=== PATIENT | male | born 1965 | race Caucasian/White ===

== ENCOUNTER 2017-05-21 10:29 | Emergency (ER) | payer MEDICAID, OTHER ==
[~2017-05-21] VITALS: Ht 172.7 cm; Wt 54.4 kg
[2017-05-21 10:41] VITALS: BP 123/78
[2017-05-21 11:16] LABS: HEMOGLOBIN 10.4 g/dL (12.0-18.0); MEAN CORPUSCULAR HEMOGLOBIN 29 pg (27-31); MEAN CORPUSCULAR HGB CONC 34 g/dL (33-37); MEAN CORPUSCULAR VOLUME 86 fL (80-94); PLATELET COUNT (AUTO) 78 K/uL (140-450); RED CELL DISTRIBUTION WIDTH 15.1 % (11.6-13.7); WHITE BLOOD COUNT (AUTO) 3.1 K/uL (4.8-10.8)
[2017-05-21 11:32] LABS: ANION GAP 12.2 (8-16); CARBON DIOXIDE 27.5 mmol/L (21-32); CHLORIDE 103 mmol/L (98-107); CREATININE 0.8 mg/dL (0.7-1.3); GFR ARICAN-AMERICAN 131 mL/min (>90); GLUCOSE 106 mg/dL (74-106); POTASSIUM 3.7 mmol/L (3.5-5.1); SODIUM SERUM 139 mmol/L (136-145); UREA NITROGEN, BLOOD 9 mg/dL (7-18)
[2017-05-21 11:34] LABS: ALBUMIN 2.5 g/dL (3.4-5.0); ASPARTATE AMINOTRANSFERASE 43 U/L (15-37)
[2017-05-21 11:52] LABS: EOSINOPHILS % (MANUAL) 2 % (0-4); LYMPHOCYTES % (MANUAL) 38 % (20-46); MONOCYTES % (MANUAL) 2 % (5-12)
== END 2017-05-21 11:03 | disposition left against medical advice (07) ==
LOC: MED 10:29
DX: G92 Toxic encephalopathy (principal); F11.10 Opioid abuse, uncomplicated; E11.9 Type 2 diabetes mellitus without complications; I10 Essential (primary) hypertension
CPT/HCPCS: 36415; 71045; 80053; 82948; 84484; 85025; 93005; 99285; G0482; Q0092